=== PATIENT | male | born 1965 | race Caucasian/White ===

== ENCOUNTER 2016-10-04 13:42 | Emergency (ER) | payer BC ==
[~2016-10-04] VITALS: Wt 107.0 kg
[2016-10-04] MEDS ORDERED: FURO40TA4 PO ×2 (14:31→14:48)
[2016-10-04] MEDS ORDERED: CALC-277 PO (14:31)
[2016-10-04] MEDS ORDERED: [UNRECOGNIZED DRUG - CODE] PO (14:32)
[2016-10-04] MEDS ORDERED: GLIP5TAB13 PO ×2 (14:32→14:48)
[2016-10-04] MEDS ORDERED: HYD25 PO (14:33)
[2016-10-04] MEDS ORDERED: SIMV20TA PO ×2 (14:33→14:39)
[2016-10-04 14:36] LABS: BASOPHIL # 0.1 10^3/ul (0.0-0.1); BASOPHILS % 0.4 % (0.0-2.0); EOSINOPHILS # 0.3 10^3/ul (0.0-0.5); EOSINOPHILS % 1.7 % (0.0-7.0); HEMATOCRIT 36.8 % (42.0-52.0); HEMOGLOBIN 12.5 g/dl (14.0-18.0); LYMPHOCYTES # 1.8 10^3/ul (0.8-2.9); LYMPHOCYTES % 11.9 % (15.0-51.0); MEAN CORPUSCULAR HEMOGLOBIN 32.1 pg (29.0-33.0); MEAN CORPUSCULAR HGB CONC 33.9 g/dl (32.0-37.0); MEAN CORPUSCULAR VOLUME 94.6 fl (82.0-101.0); MEAN PLATELET VOLUME 8.7 fl (7.4-10.4); MONOCYTE # 1.3 10^3/ul (0.3-0.9); MONOCYTES % 8.4 % (0.0-11.0); NEUTROPHILS % 77.6 % (39.0-77.0); PLATELET COUNT 192 10^3/UL (140-440); RED BLOOD COUNT 3.89 10^6/ul (4.70-6.10); UNCORRECTED WBC 15.5 10^3/ul (4.8-10.8); WHITE BLOOD COUNT 15.5 10^3/ul (4.8-10.8)
[2016-10-04 14:39] LABS: CONDITION 1
[2016-10-04] MEDS ORDERED: CALC500T91 PO (14:39)
[2016-10-04 14:40] LABS: INR 0.91; PROTIME 12.3 Sec (12.2-14.2)
[2016-10-04] MEDS ORDERED: FOLI0.8T2 PO (14:40)
[2016-10-04 14:41] LABS: PARTIAL THROMBOPLASTIN TIME 26.4 Sec (25.0-35.0)
[2016-10-04 14:43] LABS: ALBUMIN 4.6 g/dl (3.3-4.9); POTASSIUM 3.8 mmol/L (3.5-5.1)
[2016-10-04 14:45] LABS: CREATININE 4.09 mg/dl (0.61-1.24)
[2016-10-04 14:46] LABS: ALBUMIN/GLOBULIN RATIO 1.31; BILIRUBIN,INDIRECT 0.4 mg/dl (0-1.1); BILIRUBIN,TOTAL 0.4 mg/dl (0.2-1.3); CALCIUM 9.5 mg/dl (8.4-10.2); TOTAL PROTEIN 8.1 g/dl (6.1-8.1)
[2016-10-04] MEDS ORDERED: CHOL100062 PO (14:46)
--- NOTE | 2016-10-04 15:28 | RADRPT ---
PROCEDURE: US left upper extremity AV fistula/graft CLINICAL INDICATION: Renal failure TECHNIQUE: Multiple sonographic images of the left upper extremity arteries, veins and hemodialysi s access was obtained utilizing grayscale, color-flow, compressive sonography and doppler imaging. The images were reviewed on a PACS workstation. COMPARISON: None. FINDINGS: There is a left upper extremity AV fistula which is patent. Velocities, and measurements were obtained: Upper outflow vein: 260 cm/s; flow 293 ml/minute; diameter 2 mm Mid outflow vein: 458 cm/s; flow 73 ml/minute ; diameter 1 mm Lower outflow vein: 441 cm/s; flow 395 ml/minute ; diameter 2 mm Arterial anastomosis: 94 cm/s; diameter 5 mm Inflow artery : 160 cm/s IMPRESSION: Elevated velocities and decreased flow in the proximal and mid aspects of the left AV fistula. Small diameter of the fistula. Fistulogram with angioplasty is recommended. RPTAT: AA .Mandeep Jimenez MD, MD Date Time Electronically viewed and signed by .Mandeep Jimenez MD, on 10/04/2016 15:27 .S/
--- NOTE | 2016-10-04 15:34 | ERA ---
ER Documentation Chief Complaint Date/Time DATE: 10/04/16 TIME: 15:28 Chief Complaint LEFT ARM FISTULA CLOGGED FROM TODAY. NO PAIN . NO CSM DEFICIT. HPI This is a 51-year-old male that presents to the emergency department sent from his dialysis center with concerns of clotting as a his left AV fistula. The patient had a full run of dialysis just prior to arrival and has been on dialysis since 2013. He denies any fever shaking or chills. He denies any numbness or tingling of his left upper extremity. He has had no fevers or shaking or chills. He denies any chest pain or pressure that radiates to the neck arm back or jaw. His internet researcher is Dr. López. ROS All systems reviewed and are negative except as per history of present illness. Medications Home Meds Reported Medications Furosemide* (Furosemide*) 40 Mg Tablet, 40 MG PO DAILY, TAB 10/04/16 Glipizide* (Glipizide*) 5 Mg Tablet, 5 MG PO BID, TAB 10/04/16 Cholecalciferol* (Vitamin D3*) 1,000 Unit Tablet, 1000 UNIT PO DAILY, TAB 10/04/16 Folic Acid/Vitamin B Comp W-C (Renal Multivitamin Tablet) 0.8 Mg Tablet, 0.8 MG PO DAILY, TAB 10/04/16 Simvastatin* (Zocor*) 20 Mg Tablet, 20 MG PO QHS, #30 TAB 10/04/16 Hydrochlorothiazide* (Hydrochlorothiazide*) 25 Mg Tab, 25 MG PO DAILY, #30 TAB 10/04/16 Discontinued Reported Medications Calcium Carbonate ([id number]) 500 Mg Tablet, 500 MG PO DAILY, TAB 10/04/16 Folic Acid/Vit Bcomp,C (Renal Vitamin Tablet) 0.8 Mg Tablet, 0.8 MG PO DAILY, TAB 10/04/16 Calcium Carbonate/Vitamin D3 (OYSTER SHELL 500 MG + VIT D TB) 1 Each Tablet, 1 EACH PO DAILY, TAB 10/04/16 Allergies Allergies: Coded Allergies: No Known Allergy (Unverified , 10/04/16) PMhx/Soc History of Surgery: Yes (AVF PLACEMENT) Anesthesia Reaction: No Hx Neurological Disorder: No Hx Respiratory Disorders: No Hx Cardiac Disorders: No Hx Psychiatric Problems: No Hx Miscellaneous Medical Probl: Yes (KIDNEY FAILURE ON DIALYSIS) Hx Alcohol Use: No Hx Substance Use: No Hx Tobacco Use: No Smoking Status: Never smoker Physical Exam Vitals Vital Signs Date Time Temp Pulse Resp B/P Pulse Ox O2 Delivery O2 Flow Rate FiO2 10/04/16 16:13 91 18 130/57 98 Room Air 10/04/16 13:45 98.5 122 20 127/59 98 Physical Exam Constitutional:Well-developed. Well-nourished. HEENT:Normocephalic. Atraumatic.Pupils were equal round reactive to light. Moist mucous membranes.No tonsillar exudates. Neck: No nuchal rigidity. No lymphadenopathy. No posterior cervical spine tenderness or step-offs. Respiratory: Not using accessory muscles of respiration.Lungs were clear to auscultation bilaterally. No rhonchi. No rales. No wheezing. Cardiovascular: Regular rate regular rhythm.No murmurs. No rubs were appreciated.S1, S2 normal. Distal pulses are palpable 2+ bilaterally. Radial and ulnar pulses were equal and symmetrical bilaterally GI: Abdomen was soft. Nontender. Non Distended. No pulsatile abdominal masses or bruits. No rebound. No guarding. Bowel sounds were present and normal. Muscle skeletal: Full range of motion of both the upper and lower extremities bilaterally.Normal muscle tone.No assymetrical calf tenderness or swelling. Skin: No petechia, no purpura. No lesions on the palms or the soles of the feet. No maculopapular rash. Positive thrill or bruit of the left upper extremity AV fistula. NEURO: Patient was alert, awake, orientated x3.No facial droop. Gait observed and normal with no ataxia.Speech had regular rate and rhythm. No focal neurological deficits. Result Diagram: 10/04/16 1415 10/04/16 1415 Results 24 hrs Laboratory Tests Test 10/04/16 14:15 Activated Partial Thromboplast Time 26.4Sec Alanine Aminotransferase (ALT/SGPT) 36IU/L Albumin 4.6g/dl Albumin/Globulin Ratio 1.31 Alkaline Phosphatase 71IU/L Anion Gap 20 Aspartate Amino Transf (AST/SGOT) 30IU/L Basophils # 0.110^3/ul Basophils % 0.4% Blood Urea Nitrogen 47mg/dl Calcium Level 9.5mg/dl Carbon Dioxide Level 30mmol/L Chloride Level 91mmol/L Creatinine 4.09mg/dl Direct Bilirubin 0.00mg/dl Eosinophils # 0.310^3/ul Eosinophils % 1.7% Globulin 3.50g/dl Glucose Level 270mg/dl Hematocrit 36.8% Hemoglobin 12.5g/dl INR International Normalized Ratio 0.91 Indirect Bilirubin 0.4mg/dl Lymphocytes # 1.810^3/ul Lymphocytes % 11.9% Mean Corpuscular Hemoglobin 32.1pg Mean Corpuscular Hemoglobin Concent 33.9g/dl Mean Corpuscular Volume 94.6fl Mean Platelet Volume 8.7fl Monocytes # 1.310^3/ul Monocytes % 8.4% Neutrophils # 12.010^3/ul Neutrophils % 77.6% Nucleated Red Blood Cells # 0.010^3/ul Nucleated Red Blood Cells % 0.0/100WBC Platelet Count 84388^3/UL Potassium Level 3.8mmol/L Prothrombin Time 12.3Sec Prothrombin Time Ratio 1.0 Red Blood Count 3.8910^6/ul Red Cell Distribution Width 13.0% Sodium Level 137mmol/L Total Bilirubin 0.4mg/dl Total Protein 8.1g/dl White Blood Count 15.510^3/ul Procedures/MDM This is a very pleasant 51-year-old male that presented to the emergency department with concerns for malfunctioning of his left upper extremity AV fistula. Ancillary laboratory work indicated that the patient had mild leukocytosis with white blood count of 15.5. He had a full run of dialysis and his potassium was normal. I obtained an arterial study of the patient's left upper extremity to assess the functioning AV fistula which indicated the following: Elevated velocities and decreased flow in the proximal and mid aspects of the left AV fistula. Small diameter of the fistula. Fistulogram with angioplasty is recommended. I spoke with Dr. López who indicated I should consult Dr. Myke Anderson who is the patient's vascular surgeon. I spoke with Dr. Anedrson on the phone and he stated that he will follow-up with the patient on an outpatient basis for declotting and will contact the patient himself. The patient was hemodynamically stable and felt comfortable being discharged home. I explained to the patient is discharge instructions. The patient was discharged home in fair condition. They were instructed to return to the emergency department at any time if there was any worsening of their condition. The patient stated they would follow up with their PCP in the next 24-48 hours to initiate a suitable medication regimen under the care of their PCP as well as to allow their PCP to monitor any drug reactions. The patient was discharged home with prescriptions after they gave informed consent to the new medication. They were also fully informed by myself on the adverse effects and adverse drug interactions in order to provide adequate safeguards to prevent possible adverse reactions to medications. Departure Diagnosis: Primary Impression: Problem with dialysis access Qualified Code: T82.898A - Problem with dialysis access, initial encounter Condition: NEMESIO Alfaro Oct 04, 2016 15:34
[2016-10-04 16:13] VITALS: BP 130/57; PULSE 91; RESP 18
== END 2016-10-04 18:02 | disposition home or self-care (01) ==
LOC: E/R 13:42
DX: T82.590A Other mechanical complication of surgically created arteriovenous fistula, initial encounter (principal); R40.2142 Coma scale, eyes open, spontaneous, at arrival to emergency department; R40.2252 Coma scale, best verbal response, oriented, at arrival to emergency department; R40.2362 Coma scale, best motor response, obeys commands, at arrival to emergency department; Y65.8 Other specified misadventures during surgical and medical care; Z99.2 Dependence on renal dialysis
CPT/HCPCS: 80053; 85025; 85610; 85730; 93931; 99283

== ENCOUNTER 2018-01-25 09:54 | Day surgery (SDC) | END 2018-01-31 10:00 | disposition home or self-care (01) ==

== ENCOUNTER 2018-02-14 11:30 | Emergency (ER) | END 2018-02-14 14:57 | disposition home or self-care (01) ==

== ENCOUNTER 2018-02-15 06:47 | Day surgery (SDC) | END 2018-02-15 11:21 | disposition home or self-care (01) ==

== ENCOUNTER 2018-07-26 08:12 | Day surgery (SDC) | END 2018-07-26 13:11 | disposition home or self-care (01) ==